=== PATIENT | female | born 1970 | race Caucasian/White ===

== ENCOUNTER 2019-03-27 12:15 | Emergency (ER) | payer BC ==
[2019-03-27 12:49] LABS: BILIRUBIN,URINE NEGATIVE (NEGATIVE); GLUCOSE, URINE (UA) NEGATIVE (NEGATIVE); KETONES,URINE (UA) TRACE mg/dL (NEGATIVE); LEUKOCYTE ESTERASE, URINE MODERATE (NEGATIVE); NITRITE,URINE NEGATIVE (NEGATIVE); OCCULT BLOOD,URINE LARGE (NEGATIVE); PROTEIN,URINE TRACE mg/dL (NEGATIVE); UROBILINOGEN,URINE 0.2 (NORMAL) E.U./dL (NORMAL)
[2019-03-27 12:52] LABS: CLARITY,URINE CLEAR (CLEAR); HCG UR QUAL NEGATIVE
[2019-03-27 13:02] LABS: BASOPHILS # (AUTO) 0.1 10^3/uL (0.0-0.1); BASOPHILS % (AUTO) 0.8 %; EOSINOPHILS # (AUTO) 0.1 10^3/uL (0.0-0.7); EOSINOPHILS % (AUTO) 1.3 %; HGB - HEMOGLOBIN 15.6 g/dL (12.0-16.0); LYMPHOCYTES # (AUTO) 2.6 10^3/uL (1.5-3.5); LYMPHOCYTES % (AUTO) 36.4 %; MEAN CORPUSCULAR HEMOGLOBIN 34.5 pg (27.0-31.0); MEAN CORPUSCULAR HGB CONC 34.8 g/dL (32.0-36.0); MEAN CORPUSCULAR VOLUME 99.1 fL (81.0-99.0); MEAN PLATELET VOLUME 10.4 fL (7.9-10.8); MONOCYTES # (AUTO) 0.5 10^3/uL (0.0-1.0); MONOCYTES % (AUTO) 6.9 %; NEUTROPHILS # (AUTO) 3.9 10^3/uL (1.5-6.6); NEUTROPHILS % (AUTO) 54.3 %; PLT - PLATELET COUNT 214 10^3/uL (130-450); RED BLOOD COUNT 4.52 10^6/uL (4.20-5.40); RED CELL DISTRIBUTION WIDTH 12.9 % (12.0-15.0); WHITE BLOOD COUNT 7.2 x10^3/uL (4.8-10.8)
[2019-03-27 13:03] LABS: BACTERIA,URINE Few /HPF (None Seen); SQUAMOUS EPITHELIAL CELL,UR MANY Squamous (<= Few)
[2019-03-27 13:14] LABS: ALBUMIN/GLOBULIN RATIO 1.1 (1.0-2.2); BILIRUBIN,TOTAL 0.4 mg/dL (0.2-1.0); CALCIUM 9.1 mg/dL (8.5-10.3); CREATININE 0.7 mg/dL (0.4-1.0); TOTAL PROTEIN 7.5 g/dL (6.7-8.2)
[2019-03-27] MEDS ORDERED: IBUPROFEN 800 MG TABLET PO STA (14:07)
--- NOTE | 2019-03-27 14:09 | ED Physician Documentation ---
PD HPI ABD PAIN - Stated complaint Stated Complaint: FEM /SIDE PX - Chief complaint Chief Complaint: Abd Pain - History obtained from History obtained from: Patient - History of Present Illness Timing - onset: Other (48-year-old woman with history of renal colic with interventions in the past and UTIs presents with 2 days of urinary burning, suprapubic pressure, hematuria and left flank pain without fevers or chills. No nausea but she does not feel like eating.) Review of Systems Ten Systems: 10 systems reviewed and negative Constitutional: reports: Fatigue. denies: Fever, Chills Cardiac: denies: Chest pain / pressure, Palpitations Respiratory: denies: Dyspnea, Cough GI: denies: Nausea, Constipation, Diarrhea PD PAST MEDICAL HISTORY - Present Medications Home Medications: Ambulatory Orders Medication Instructions Recorded Confirmed Ciprofloxacin HCl [Cipro] 500 mg PO BID #20 tablet 03/27/19 Hydrocodone/Acetaminophen 1 - 2 each PO Q6H PRN #14 tablet 03/27/19 [Hydrocodon-Acetaminophen 5-325] RX: Amlodipine Besylate 10 mg PO DAILY 03/27/19 03/27/19 RX: Aspirin 325 mg PO DAILY 03/27/19 03/27/19 RX: Lisinopril 10 mg PO BID 03/27/19 03/27/19 RX: Metoprolol Tartrate 50 mg PO BID 03/27/19 03/27/19 - Allergies Allergies/Adverse Reactions: Allergies Allergy/AdvReac Type Severity Reaction Status Date / Time No Known Drug Allergies Allergy Verified 03/27/19 12:23 PD ED PE NORMAL - Vitals Vital signs reviewed: Yes - General General: Alert and oriented X 3, No acute distress, Well developed/nourished - Abdomen Abdomen: Normal bowel sounds, Soft, Other (Tender over the left flank, less in the left lower quadrant.) - Extremities Extremities: No edema, No calf tenderness / cord - Neuro Neuro: Alert and oriented X 3, Normal speech Results - Vitals Vitals: Vital Signs - 24 hr 03/27/19 03/27/19 12:21 14:42 Temperature 36.5 C 37.2 C Heart Rate 115 H 87 Respiratory 18 16 Rate Blood Pressure 140/110 H 134/106 H O2 Saturation 97 97 Oxygen O2 Source Room air - Labs Labs: Laboratory Tests 03/27/19 03/27/19 03/27/19 12:42 12:56 12:56 WBC 7.2 RBC 4.52 Hgb 15.6 Hct 44.8 MCV 99.1 H MCH 34.5 H MCHC 34.8 RDW 12.9 Plt Count 214 MPV 10.4 Neut # (Auto) 3.9 Lymph # (Auto) 2.6 [place] # (Auto) 0.5 Eos # (Auto) 0.1 Baso # (Auto) 0.1 Absolute Nucleated RBC 0.00 Nucleated RBC % 0.0 Sodium 140 Potassium 3.6 Chloride 107 Carbon Dioxide 23 Anion Gap 10.0 BUN 12 Creatinine 0.7 Estimated GFR (MDRD) 89 Glucose 125 H Calcium 9.1 Total Bilirubin 0.4 AST 22 ALT 16 Alkaline Phosphatase 51 Total Protein 7.5 Albumin 4.0 Globulin 3.5 Albumin/Globulin Ratio 1.1 Lipase 27 Urine Color YELLOW Urine Clarity CLEAR Urine pH 6.0 Ur Specific [place] 1.025 Urine Protein TRACE Urine Glucose (UA) NEGATIVE Urine Ketones TRACE Urine Occult Blood LARGE H Urine Nitrite NEGATIVE Urine Bilirubin NEGATIVE Urine Urobilinogen 0.2 (NORMAL) Ur Leukocyte Esterase MODERATE H Urine RBC 6-10 H Urine WBC 6-10 H Ur Squamous Epith Cells MANY Squamous H Urine Bacteria Few Ur Microscopic Review INDICATED Urine Culture Comments NOT INDICATED Urine HCG, Qual NEGATIVE 03/27/19 14:46 WBC RBC Hgb Hct MCV MCH MCHC RDW Plt Count MPV Neut # (Auto) Lymph # (Auto) [place] # (Auto) Eos # (Auto) Baso # (Auto) Absolute Nucleated RBC Nucleated RBC % Sodium Potassium Chloride Carbon Dioxide Anion Gap BUN Creatinine Estimated GFR (MDRD) Glucose Calcium Total Bilirubin AST ALT Alkaline Phosphatase Total Protein Albumin Globulin Albumin/Globulin Ratio Lipase Urine Color YELLOW Urine Clarity HAZY Urine pH 5.5 Ur Specific [place] >=1.030 H Urine Protein NEGATIVE Urine Glucose (UA) NEGATIVE Urine Ketones NEGATIVE Urine Occult Blood MODERATE H Urine Nitrite NEGATIVE Urine Bilirubin NEGATIVE Urine Urobilinogen 0.2 (NORMAL) Ur Leukocyte Esterase SMALL H Urine RBC 11-25 H Urine WBC 4-5 Ur Squamous Epith Cells MOD Squamous H Urine Bacteria Rare Ur Microscopic Review INDICATED Urine Culture Comments NOT INDICATED Urine HCG, Qual - Rads (name of study) Ct KUB Radiology: EMP read contemporaneously (Punctate nonobstructing left renal calculus without other acute findings.) PD MEDICAL DECISION MAKING - ED course ED course: 48-year-old woman with history of kidney stones presents with a history most consistent with pyelonephritis but also concerning for renal colic with or without infection. As such as CT was done and there was no ureterolithiasis. Departure - Departure Disposition: 01 Home, Self Care Clinical Impression: Pyelonephritis Condition: Good Record reviewed to determine appropriate education?: Yes Instructions: Pyelonephritis Dc Prescriptions: Ciprofloxacin HCl [Cipro] 500 mg PO BID #20 tablet Hydrocodone/Acetaminophen [Hydrocodon-Acetaminophen 5-325] 1 - 2 each PO Q6H PRN #14 tablet PRN Reason: pain Comments: Return anytime if worsening, for high fever, or if not improving in the next 48 hours or so. Do not drink or drive while taking narcotic pain medication. Note that many narcotic pain relievers also contain Tylenol/acetaminophen. Please ensure that your total dose of acetaminophen from all sources does not exceed 3 g (3000 mg) per day. You may get constipated while on this medication. Take a stool softener such as Colace twice a day while you are on it. Also add an [id number] laxative such as senna or MiraLAX on any day that you do not have a bowel movement. If you received a narcotic pain medication or sedative while in the emergency department, do not drive for the next 24 hours. We will culture your urine, the results should be done in 48-72 hours. If an antibiotic change is necessary we will call you. Return if worse in the meantime, especially if you develop increasing flank pain, fevers, or cannot keep down the medication. Forms: Activity restrictions Discharge Date/Time: 03/27/19 15:10
[2019-03-27 14:43] VITALS: BP 134/106
--- NOTE | 2019-03-27 14:50 | CT Report ---
Reason: L flank pain Procedure Date: 03/27/2019 Accession Number: [id number] / [id number] Procedure: CT - Abdomen/Pelvis WO CPT Code: FULL RESULT: EXAM: CT ABDOMEN AND PELVIS (CT KUB) EXAM DATE: 03/27/2019 02:23 PM. CLINICAL HISTORY: L flank pain. COMPARISONS: None. TECHNIQUE: Routine axial helical CT imaging was performed through the abdomen and pelvis without IV contrast. Reconstructions: Coronal and sagittal. In accordance with CT protocol optimization, one or more of the following dose reduction techniques were utilized for this exam: automated exposure control, adjustment of mA and/or KV based on patient size, or use of iterative reconstructive technique. FINDINGS: Lung Bases: Unremarkable. Right Kidney/Ureter: No stones, hydronephrosis, or hydroureter. No perinephric fat stranding. Left Kidney/Ureter: Punctate stone in a mid upper pole posterior calyx. No hydronephrosis. No renal masses. No stones in the ureter. Other Solid Organs: Noncontrast images of the solid organs are grossly unremarkable. Gallbladder/Bile Ducts: Status post cholecystectomy. Peritoneal Cavity: No free fluid, free air or ellis adenopathy. Bowel is grossly unremarkable. The appendix is normal. Pelvic Organs: No bladder stones or wall thickening. Noncontrast images of the visualized pelvic organs are unremarkable. Vasculature: Unremarkable. Other: None. IMPRESSION: Punctate nonobstructing calculus in the left kidney. Otherwise normal exam. RADIA
[2019-03-27 14:59] LABS: BILIRUBIN,URINE NEGATIVE (NEGATIVE); GLUCOSE, URINE (UA) NEGATIVE (NEGATIVE); KETONES,URINE (UA) NEGATIVE (NEGATIVE); LEUKOCYTE ESTERASE, URINE SMALL (NEGATIVE); NITRITE,URINE NEGATIVE (NEGATIVE); OCCULT BLOOD,URINE MODERATE (NEGATIVE); PH,URINE 5.5 PH (5.0-7.5); PROTEIN,URINE NEGATIVE (NEGATIVE); UROBILINOGEN,URINE 0.2 (NORMAL) E.U./dL (NORMAL)
[2019-03-27] MEDS ORDERED: CIPROFLOXACIN 250 MG TABLET PO STA (15:02)
[2019-03-27 15:04] LABS: CLARITY,URINE HAZY (CLEAR)
[2019-03-27 15:24] LABS: BACTERIA,URINE Rare /HPF (None Seen); SQUAMOUS EPITHELIAL CELL,UR MOD Squamous (<= Few)
== END 2019-03-27 15:10 | disposition home or self-care (01) ==
LOC: ED 12:15
DX: N12 Tubulo-interstitial nephritis, not specified as acute or chronic (principal); N20.0 Calculus of kidney; Z79.82 Long term (current) use of aspirin
CPT/HCPCS: 36415; 74176; 80053; 81001; 81025; 83690; 85025; 87086; 99283; 99284; A9270; 81003

== ENCOUNTER 2019-04-28 20:21 | Emergency (ER) | payer BC ==
[2019-04-28] MEDS ORDERED: BUFFERED LIDOCAINE 10 ML SYRINGE SUBQ STA (21:53)
[2019-04-28] MEDS ORDERED: HYDROcod/ACETAM 5/325 MG TABLET PO STA (21:56)
[2019-04-28] MEDS ORDERED: TETANUS/DIPHTHERIA/PERTUSSIS 0.5 ML SYRINGE IM ONE (22:17)
[2019-04-28] MEDS ORDERED: AMOX/CLAV 875 MG/125 MG TABLET PO STA (22:17)
--- NOTE | 2019-04-28 22:19 | ED Physician Documentation ---
PD HPI ANIMAL BITE - Stated complaint Stated Complaint: DOG BITE ON FACE - Chief complaint Chief Complaint: Wound - History obtained from History obtained from: Patient, Family - History of Present Illness Location of injury(ies): Face Details of the event: Dog, Pet animal, Immunized, Provoked, Animal can be observed Timing - onset: Today Timing - duration: Minutes Timing - details: Abrupt onset, Still present Improved by: Rest Worsened by: Moving Similar symptoms before: Has not had sx before Recently seen: Not recently seen - Additional information Additional information: 48-year-old female was putting her friend's dog and when she went to stand up excellently stepped on a steel when she went to apologize to the dog about dog snapped in snap her face. She has a laceration to the right upper lip and some puncture wounds to the face. Review of Systems Constitutional: denies: Fever Eyes: denies: Decreased vision Ears: denies: Ear pain Nose: denies: Rhinorrhea / runny nose, Congestion Respiratory: denies: Cough GI: denies: Vomiting PD PAST MEDICAL HISTORY - Past Medical History Cardiovascular: Hypertension, High cholesterol - Past Surgical History General: Cholecystectomy /HAND CELL TUBER: Tubal ligation, Other Cardiovascular: Coronary stent - Present Medications Home Medications: Ambulatory Orders Medication Instructions Recorded Confirmed Amlodipine Besylate 10 mg PO DAILY 03/27/19 03/27/19 Aspirin 325 mg PO DAILY 03/27/19 03/27/19 Ciprofloxacin HCl [Cipro] 500 mg PO BID #20 tablet 03/27/19 Hydrocodone/Acetaminophen 1 - 2 each PO Q6H PRN #14 tablet 03/27/19 [Hydrocodon-Acetaminophen 5-325] Lisinopril 10 mg PO BID 03/27/19 03/27/19 Metoprolol Tartrate 50 mg PO BID 03/27/19 03/27/19 Amox/Clav 875/125 [Augmentin] 1 each PO Q12H #10 tablet 04/28/19 - Allergies Allergies/Adverse Reactions: Allergies Allergy/AdvReac Type Severity Reaction Status Date / Time crab Allergy Unknown Verified 04/28/19 20:39 - Social History Does the pt smoke?: Yes Smoking Status: Current every day smoker Does the pt drink ETOH?: Yes Does the pt have substance abuse?: No - Immunizations Immunizations are current?: No Immunizations: TDAP >10years/unknown - POLST Patient has POLST: No PD ED PE NORMAL - Vitals Vital signs reviewed: Yes (hypesrtensive marked. ) - General General: Alert and oriented X 3, Well developed/nourished, Other (anxious appearing ) - HEENT HEENT: PERRL, EOMI, Other (There is a 2cm laceration to the right upper lip with wide distraction through the vermilian border. There are abrasions to the chin and cheeck as well. 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, No motor deficit, No sensory deficit, Normal speech Eye Opening: Spontaneous Motor: Obeys Commands Verbal: Oriented GCS Score: 15 - Psych Psych: Normal mood, Normal affect Results - Vitals Vitals: Vital Signs - 24 hr 04/28/19 20:32 Temperature 36.6 C Heart Rate 83 Respiratory 15 Rate Blood Pressure 205/142 H O2 Saturation 99 Oxygen O2 Source Room air Procedures - Laceration (location) upper lip right Length in cm: 2 Wound type: Curved, Irregular, Clean Neurovascular status: Sensory intact, Motor intact, Vascular intact Anesthesia: Lidocaine 1%, With bicarb Wound Preparation: Hibiclens, Irrigated copiously NS, Wound explored, To the base, Multiple flaps aligned Skin layer closure: Nylon, Interrupted, Size #-0 - enter number (6-0) Other: Patient tolerated well, No complications, Neurovascular intact, Dressing applied, Tetanus booster given Complexity: Simple PD MEDICAL DECISION MAKING - ED course Complexity details: considered differential, d/w patient, d/w family ED course: 48-year-old female with a laceration to the right upper lip is quite anxious when she arrives here after being bit in the face by a dog. She has made amends with the dog and animal control has been notified. The dog is immunized and can be observed. The attack was provoked. The patient's right upper lip laceration is repaired with good cosmetic result. She is placed on antibiotic prophylaxis and given a tetanus booster. Departure - Departure Disposition: 01 Home, Self Care Clinical Impression: Dog bite of vermilion of upper lip Qualifiers: Encounter type: initial encounter Qualified Code(s): S01.551A - Open bite of lip, initial encounter; W54.0XXA - Bitten by dog, initial encounter Condition: Stable Instructions: ED Bite Animal General, ED Laceration Facial Sutr Tape Follow-Up: Your, doctor [Other] Prescriptions: Amox/Clav 875/125 [Augmentin] 1 each PO Q12H #10 tablet Comments: sutures will need to be removed in 5 days .
[2019-04-28 22:37] VITALS: BP 191/118
== END 2019-04-28 22:35 | disposition home or self-care (01) ==
LOC: ED 20:21
DX: S01.551A Open bite of lip, initial encounter (principal); S00.87XA Other superficial bite of other part of head, initial encounter; W54.0XXA Bitten by dog, initial encounter; Y93.9 Activity, unspecified; I10 Essential (primary) hypertension; E78.00 Pure hypercholesterolemia, unspecified; F17.200 Nicotine dependence, unspecified, uncomplicated; Z79.51 Long term (current) use of inhaled steroids
CPT/HCPCS: 12011; 90471; 90715; 99283; 99284; A9270